=== PATIENT | male | born 1955 | race Caucasian/White ===

== ENCOUNTER → 2018-09-12 | Day surgery (SDC) | payer OTHER ==
[~2018-09-12] MED LIST: ALDACTONE25 MG PO; ASPIR 8181 MG PO; ATORVASTATIN CA80 MG PO; CARDIZEM PO; DAILY MULTIPLE1 EACH PO; DILTIAZEM 24HR300 M1 PO; DILTIAZEM ER300 MG PO; DIOVAN HCT 1601 EACH PO; FENOFIBRATE160 MG PO; KLOR-CON M2020 MEQ PO; LANSOPRAZOLE30 MG PO; LIDOCAINE HCL 2% LOCAL INJ 5 ML SDV VIAL INJ ONE; LOSARTAN POTASS25 MG PO; METFORMIN HCL500 MG PO; MIDAZOLAM HCL 2 MG/2 ML VIAL ONE; PREVACID PO; PREVACID30 M1 PO; PROPOFOL IV EMULSION 10 MG/ML 50 ML VIAL ONE; VITAMIN C PO; VITAMIN E PO
[2018-09-12 13:30] VITALS: BP 116/81
--- NOTE | 2018-09-12 15:17 | Operative Report ---
DATE OF PROCEDURE: 09/12/2018 SURGEON: Yony Thayer MD PROCEDURES: Esophagogastroduodenoscopy with biopsies and a colonoscopy with polypectomy. INDICATION FOR EGD: Dyspepsia. INDICATION FOR COLONOSCOPY: Surveillance colonoscopy, personal history of colon polyps. MEDICATIONS: The patient was done under MAC, please see anesthesiologist's note. PROCEDURE IN DETAIL: With the patient in the left lateral decubitus position, flexible fiberoptic Olympus gastroscope was introduced into the esophagus under direct visualization without any difficulty. There was some patchy erythema noted in distal esophagus. The scope was then advanced with ease into the stomach. Mucosa overlying the antrum and the body revealed some patchy intense erythema and [id number] edema. Biopsies were obtained, sent to stain for H pylori. The pylorus was of normal contour and shape, it was intubated with ease and the scope was advanced all the way to the second portion of the duodenum. Biopsies were obtained from the second portion and duodenal bulb to rule out sprue. The scope was then withdrawn back into the stomach and retroflexed and mucosa overlying the fundus and cardia appeared to be within normal limits. The scope was then straightened out, it was subsequently withdrawn. The patient tolerated procedure well. IMPRESSION: 1. Distal esophagitis, mild. 2. Gastritis, biopsied. Biopsies sent to stain for Helicobacter pylori. 3. Rule out sprue. PLAN: Follow up histology. Initiate Protonix 40 mg one p.o. q.a.m. a.c. PROCEDURE IN DETAIL: The patient was then turned around and after adequate lubrication of the anal canal, a flexible fiberoptic Olympus colonoscope was inserted into the rectum with ease and advanced all the way to the cecum. Mucosa overlying the cecum appeared to be within normal limits. Some diverticular disease was noted in the ascending colon. Two polyps were snared, one polypectomy site was hemoclipped x2 and the 3rd polyp was removed per the cold biopsy forceps from the ascending colon. One polyp was cold biopsied from the transverse colon. One polyp was hot biopsied from the descending colon and one polyp was hot biopsied from the sigmoid colon. The rectum appeared to be within normal limits. The scope was then retroflexed into the distal rectum and small internal hemorrhoids were noted, none of which was actively bleeding. The scope was then straightened out. The scope was subsequently withdrawn. The patient tolerated the procedure well. IMPRESSION: 1. Ascending colon polyps x3, two snared, one polypectomy site hemoclipped x2 and one polyp was removed per the cold biopsy forceps. 2. Diverticulosis. 3. Transverse colon polyp removed per the cold biopsy forceps. 4. Descending colon polyp, hot biopsied. 5. Sigmoid colon polyp, hot biopsied. 6. Internal hemorrhoids, none actively bleeding. PLAN: Followup histology. Initiate high-fiber, low-fat diet. Initiate high-fiber supplement. The patient might benefit from a followup colonoscopy in 3 years. MD MACIE Ortega/MODL /[id number] cc: Fortunato Velez MD
== END | disposition home or self-care (01) ==
LOC: OR 09:12
PROVIDERS: ATTEND Internal Medicine Gastroenterology
DX: Z12.11 Encounter for screening for malignant neoplasm of colon (principal); D12.2 Benign neoplasm of ascending colon; D12.4 Benign neoplasm of descending colon; D12.3 Benign neoplasm of transverse colon; Z86.010 Personal history of colon polyps; R11.0 Nausea; R12 Heartburn; K20.9 Esophagitis, unspecified; I10 Essential (primary) hypertension; E11.9 Type 2 diabetes mellitus without complications; K58.9 Irritable bowel syndrome, unspecified; E78.5 Hyperlipidemia, unspecified; Z01.810 Encounter for preprocedural cardiovascular examination; K29.70 Gastritis, unspecified, without bleeding; K57.30 Diverticulosis of large intestine without perforation or abscess without bleeding; K64.8 Other hemorrhoids; K31.7 Polyp of stomach and duodenum; Z79.82 Long term (current) use of aspirin; Z79.84 Long term (current) use of oral hypoglycemic drugs
CPT/HCPCS: 36415; 43239; 45384; 45385; 82948; 93005; J2001; J2250; J2704; 45380